=== PATIENT | male | born 1995 | race Caucasian/White ===

== ENCOUNTER → 2021-08-09 13:02 | Outpatient (CLI) | payer OTHER, MEDICAID, SELFPAY ==
[2021-08-09 17:00] LABS: COVID19 -Nasal RAPID Negative (Negative)
== END ==
PROVIDERS: PCP Family Medicine; Visit Provider Family Medicine Sleep Medicine
DX: Z20.822 Contact with and (suspected) exposure to COVID-19 (principal)
CPT/HCPCS: 87635; C9803

== ENCOUNTER 2021-08-11 06:58 | Day surgery (SDC) | payer OTHER, MEDICAID, SELFPAY ==
[2021-08-10 13:47] VITALS: BMI 29.0
[2021-08-11] VITALS (7 sets, daily range): BP systolic 125–141; BP diastolic 79–87; PULSE 83–91; RESP 12–18; TEMP 36.8–37.4; O2SAT 97–100; BMI 29.0
--- NOTE | 2021-08-11 07:18 | PM.PREOP ---
Pre-operative Note Interval Note History & Physical reviewed/Exam performed by Physician: Yes Changes to H&P: No
--- NOTE | 2021-08-11 07:19 | P.HP_ITS ---
History of Present Illness History of Present Illness Date Patient Seen: 08/11/21 Time Patient Seen: 07:19 Chief complaint: MANDY Narrative: 25-year-old male with chronic bilateral nasal obstruction presents with persistent symptoms, known primarily left septal deviation, last seen in clinic 06/02/2021. No interval health changes, wishes to proceed with septoplasty and turbinate reduction today. No recent cough, cold, or fever. Patient History Medical History Chicken pox Deviated septum Nasal congestion Nasal turbinate hypertrophy Surgical History Anesthesia History of tonsillectomy (~2004) [place] teeth removed (~2010) Family & Social History Family History Father History of heart attack Hypertension Hyperlipidemia Grandfather Stroke Grandmother Cancer Grandfather History of heart disease Hypertension Grandmother Cancer Social History: household members spouse Tobacco & Substance use: Smoking Status Never smoker Meds Home Medications and Allergies Allergies Allergy/AdvReac Type Severity Reaction Status Date / Time amoxicillin Allergy Mild Verified 05/03/21 07:59 Review of Systems Review of Systems Narrative: Negative except as listed in the HPI Exam Narrative Exam Narrative: Well-developed well-nourished male in no acute distress. Left 3 to 4+ septal deviation 1 to 2+ right caudal deviation. Heart regular rate and rhythm without murmur, lungs clear to auscultation bilaterally. Assessment & Plan Assessment & Plan narrative: Assessment: Nasal airway obstruction, septal deviation, inferior turbinate hypertrophy, mouth breathing and hyposmia Plan: Following discussion of the material risks benefits complications and alternatives, he elected to proceed with septoplasty and inferior turbinate reduction under general anesthesia as an outpatient. Time Spent With Patient Critical Care time: I spent a total of [] minutes of critical care time on this patient's care today; this time is exclusive of procedural time.
--- NOTE | 2021-08-11 07:22 | PM.OP.1 ---
Operative Date/Time/Diagnoses Date of procedure: 08/11/21 Pre-op diagnosis: Nasal airway obstruction, septal deviation, inferior turbinate hypertrophy Post-op diagnosis: same Procedure & Clinicians Procedure: 1. Septoplasty 2. Bilateral inferior turbinate reduction via intramural cautery Same procedure as scheduled: Yes Indications: 25-year-old male with the above diagnoses incompletely managed with medical therapy presents for the above procedures. Following discussion of the material risks benefits complications and alternatives, he elected to proceed. Surgeon: Kota Morrison Click Yes if Unassisted: Yes Anesthesia Type: General and Local Operative Notes Findings: 3+ left septal deviation, 1 to 2+ right caudal deviation, right greater than left inferior turbinate hypertrophy Closure Type: primary Estimated Blood Loss (mL): 50 Procedure in detail: Following identification and confirmation of consent as well as preoperative Afrin nasal spray, the patient was brought to the operating room suite and placed in the supine position. General endotracheal anesthesia was administered. I infiltrated the septum widely bilaterally with 1% lidocaine 1 100,000 epinephrine followed by temporary packing with cotton with Afrin and 4% lidocaine. Following sterile prep and drape, the packing was removed and I performed a right alonso-transfixion incision, elevated the right mucoperichondrial and mucoperiosteal flap. I disarticulated near the bony/cartilaginous junction and elevated the left mucoperiosteal flap. Deviated portions of the perpendicular plate of the ethmoid and vomer were resected. The residual quadrilateral cartilage was further straightened by trimming it inferiorly as well as reducing the maxillary crest. A 2 mm strip of cartilage paralleling the residual 1 cm dorsal and caudal strut was resected to further straighten the quadrilateral cartilage. The hemitransfixion incision was closed with interrupted 5 0 chromic followed by a running 4 0 plain gut mattress suture to reapproximate the septal flaps. At case completion, 20/1000th of an inch silastic splints were placed bilaterally, sutured anteriorly with a single 4 0 nylon. The head of each inferior turbinate had been previously infiltrated with additional local anesthetic and a 25 gauge spinal needle was used to impale the length of the turbinate, with cautery on a setting of 15 activated on slow withdrawal over 2 passes. The turbinates were then outfractured. The procedure completed, sponge and needle counts were correct and the patient was extubated in the operating room and taken to recovery room in stable condition without known complication. Postoperative care: Nasal saline every hour while awake, Vaseline or Polysporin to the nostrils at all times, begin irrigations t.i.d. beginning pod 1. Humidifier at the bedside blowing on the face. Tylenol alternating with Advil for pain control, oxycodone if necessary for breakthrough pain. Complications: none Post-operative Condition: stable Disposition: same day surgery Plan for aftercare: Nasal saline every hour while awake, begin irrigations t.i.d. tomorrow if desired. Polysporin to the nostrils at all times, Tylenol alternating with Advil for pain control, oxycodone for breakthrough pain. Elevate head of bed, no nose blowing, no straining for 2 weeks. Follow-up in 1 week for nasal splint removal.
[2021-08-11] MEDS: OXYMETAZOLINE NASAL SPRAY 15 ML 2 SPRAYS NASAL ×2 (07:34→09:41)
[2021-08-11] MEDS: LACTATED RINGERS 1,000 ML 42 ML IV ×2 (07:34→10:51)
--- NOTE | 2021-08-11 09:32 | SUR.OPER ---
Supine on padded OR bed, head on donut gel, left arm tucked, right arm secured on padded arm boards at <90 degrees abduction, legs uncrossed, safety belt at thigh, tape over blanket over lower legs.
[2021-08-11] MEDS: BACITRACIN 28 GM OINT 1 APPLIC TOP (09:39)
[2021-08-11] MEDS: LIDOCAINE 1% W/EPI 20 ML INJ (09:40)
[2021-08-11] MEDS: LIDOCAINE 4% SOLN 50 ML 20 ML TOP (09:44)
--- NOTE | 2021-08-11 11:20 | SUR.PHASEII ---
Discharge instructions given to pt and pt states he understands discharge instructions. pain level is at a 1 upon discharge and pt says this totally tolerable. No complaints voiced. Pt to be discharged with .
== END 2021-08-11 11:24 | disposition home or self-care (01) ==
PROVIDERS: PCP Family Medicine; Referring Provider Otolaryngology; Visit Provider Otolaryngology
PROC: (CPT 30520; principal; 2021-08-11 08:45)
DX: J34.2 Deviated nasal septum (principal); J34.89 Other specified disorders of nose and nasal sinuses; J34.3 Hypertrophy of nasal turbinates; R06.5 Mouth breathing
CPT/HCPCS: 30520; 30802; A9270; J1100; J2405; J2704; J3010